=== PATIENT | male | born 1970 | race Native Hawaiian/Other Pacific Islander ===

== ENCOUNTER 2016-08-30 20:46 | Emergency (ER) | payer OTHER ==
[2016-08-30] MEDS ORDERED: SODIUM CHLORIDE 0.9% 1,000 ML IV ONE (21:15)
[2016-08-30] MEDS ORDERED: ONDANSETRON 4 MG/2 ML VIAL IM STA (21:16)
[2016-08-30] MEDS ORDERED: SUCRALFATE 1 GM TAB PO STA (21:16)
[2016-08-30] MEDS ORDERED: ONDANSETRON 4 MG/2 ML VIAL IVP STA (21:33)
[2016-08-30 21:57] LABS: Basophils # (A) 0.1 k/uL (0-0.2); Basophils % (A) 1 %; CH 31.6; CHCM 36.6; Eosinophils # (A) 0.1 k/uL (0-0.7); Eosinophils % (A) 1 %; HCT 40.7 % (39.0-53.0); HDW 2.51; HGB 14.7 gm/dL (13.0-17.5); Luc # (Auto) 0.41; Luc % (Auto) 4; Lymphocytes # (A) 2.3 k/uL (1.0-4.8); Lymphocytes % (A) 24 %; MCH 31.1 pg (25.0-35.0); MCV 86.4 fL (80.0-100.0); Mean Platelet Volume 6.6; Monocytes # (A) 0.8 k/uL (0-1.0); Monocytes % (A) 8 %; Neutrophils # (A) 5.9 k/uL (1.3-7.7); Neutrophils % (A) 62 %; RBC 4.71 m/uL (4.30-5.90); RDW 13.5 % (11.5-15.5); WBC 9.5 k/uL (3.8-10.6); WBC (Perox) 8.73
[2016-08-30 22:00] LABS: Appearance,Urine Clear (Clear); Bilirubin,Urine Negative (Negative); Glucose,Urine (UA) Negative (Negative); Ketones,Urine Negative (Negative); Leukocyte Esterase,Urine Negative (Negative); Nitrite,Urine Negative (Negative); Protein,Urine Negative (Negative); Specific Gravity,Urine 1.002 (1.001-1.035); UA Billing (MACRO vs. MICRO) CHEM; Urobilinogen,Urine <2.0 mg/dL (<2.0)
[2016-08-30] MEDS ORDERED: SODIUM CHLORIDE 0.9% 1,000 ML with MVI, ADULT NO.4 WITH VIT K 10 ML, THIAMINE 100 MG, F... IV ONE ×4 (22:00)
[2016-08-30 22:13] LABS: ALT 28 U/L (21-72); AST 44 U/L (17-59); Alkaline Phosphatase 138 U/L (38-126); Anion Gap 16 mmol/L; Blood Urea Nitrogen 10 mg/dL (9-20); Calcium 8.3 mg/dL (8.4-10.2); Carbon Dioxide 21 mmol/L (22-30); Chloride 102 mmol/L (98-107); Glucose 116 mg/dL (74-99); Non-African American GFR(MDRD) >60 (>60 ml/min/1.73 sqM); Potassium 3.7 mmol/L (3.5-5.1); Sodium 139 mmol/L (137-145); Total Bilirubin 0.6 mg/dL (0.2-1.3); Total Protein 7.4 g/dL (6.3-8.2)
--- NOTE | 2016-08-30 22:30 | ED ---
Alcohol HPI - General Source: patient Mode of arrival: wheelchair Limitations: no limitations <Bigg Mcleod - Last Filed: 08/31/16 00:51> <Keny Lozada - Last Filed: 08/31/16 07:01> - General Chief Complaint: Alcohol Stated Complaint: ETOH - History of Present Illness Initial Comments: Patient is a 46-year-old male who presents for evaluation for severe alcohol intoxication. Past medical history as below. Patient has a significant history of alcohol abuse. States he typically drinks a case of beer daily. Today, he drank a case of beer and half a pint of bourbon. He stated that he walked here from his house to be evaluated for alcohol rehab. He states he does not want to drink anymore. States that he has severe gastritis which she gets from his drinking. States that he is very nauseous. Has a significant history of alcohol withdrawal. He has had at least 4 seizures in the past due to alcohol withdrawal. States she is even been in the ICU for it. He manages his withdrawal symptoms at home with Ativan which she takes regularly. He denies any suicidal homicidal ideation. He denies any other coingestions. Denies any falls or any other injuries. Currently denies fever, chills, headaches, changes in vision, URI symptoms, shortness breath, cough, chest pain , vomiting, diarrhea, pain or burning with urination. (Bigg Mcleod) - Related Data Home Medications Medication Instructions Recorded Confirmed No Known Home Medications [No 06/28/15 08/30/16 Known Home Medications] Allergies Allergy/AdvReac Type Severity Reaction Status Date / Time Sulfa (Sulfonamide Allergy Swelling Verified 08/30/16 22:12 Antibiotics) Review of Systems ROS Other: All systems not noted in ROS Statement are negative. <Bigg Mcleod - Last Filed: 08/31/16 00:51> ROS Other: All systems not noted in ROS Statement are negative. <Keny Lozada - Last Filed: 08/31/16 07:01> ROS Statement: Those systems with pertinent positive or pertinent negative responses have been documented in the HPI. Past Medical History Past Medical History: GERD/Reflux Additional Past Medical History / Comment(s): Gout, Gastritis. History of Any Multi-Drug Resistant Organisms: None Reported Past Surgical History: No Surgical Hx Reported Past Anesthesia/Blood Transfusion Reactions: No Reported Reaction Past Psychological History: Anxiety, Bipolar, Depression Smoking Status: Current every day smoker Past Alcohol Use History: Abuse, Daily, Heavy Past Drug Use History: None Reported - Past Family History Mother History Unknown: Yes Family Medical History: Unable to Obtain Additional Family Medical History / Comment(s): Patient is adopted and does not know any history on his parents or family members. Father Family Medical History: Unable to Obtain <EraleslieBigg Shilpa - Last Filed: 08/31/16 00:51> General Exam Limitations: no limitations General appearance: alert, in no apparent distress, other (Appears clinically intoxicated) Head exam: Present: atraumatic, normocephalic, normal inspection, other (No signs of head trauma.) Eye exam: Present: normal appearance, PERRL, EOMI. Absent: scleral icterus, conjunctival injection, periorbital swelling ENT exam: Present: normal exam, mucous membranes moist Neck exam: Present: normal inspection. Absent: tenderness, meningismus, lymphadenopathy Respiratory exam: Present: normal lung sounds bilaterally, other (No pain with palpation of the chest wall). Absent: respiratory distress, wheezes, rales, rhonchi, stridor Cardiovascular Exam: Present: regular rate, normal rhythm, normal heart sounds. Absent: systolic murmur, diastolic murmur, rubs, gallop, clicks GI/Abdominal exam: Present: soft, tenderness, normal bowel sounds, other (Pain with palpation of the epigastric area. Soft abdomen. No peritoneal signs.). Absent: distended, guarding, rebound, rigid Extremities exam: Present: normal inspection, full ROM, normal capillary refill , other (No signs of trauma to the extremity is. No contusions or lacerations.) . Absent: tenderness, pedal edema, joint swelling, calf tenderness Back exam: Present: normal inspection Neurological exam: Present: alert, oriented X3, CN II-XII intact Psychiatric exam: Present: normal affect, normal mood. Absent: homicidal ideation, suicidal ideation Skin exam: Present: warm, dry, intact, normal color. Absent: rash <EraBigg nelson Shilpa - Last Filed: 08/31/16 00:51> Medical Decision Making - Lab Data Result diagrams: 08/30/16 21:31 08/30/16 21:31 <Bigg Mcleod - Last Filed: 08/31/16 00:51> - Lab Data Result diagrams: 08/30/16 21:31 08/30/16 21:31 <Keny Lozada - Last Filed: 08/31/16 07:01> - Medical Decision Making Patient is a 46-year-old male who presents for evaluation for alcohol abuse help. He is currently intoxicated. Slurred speech. No signs of trauma. He did have some tenderness in the epigastric area but he has a known history of gastritis and states he is very nauseous right now. We'll order basic labs with an alcohol level, and in a bag, IV fluids, Carafate. Does have a significant history of alcohol withdrawal. We'll monitor closely. 0030: Reviewed laboratory studies. Largely unremarkable. Alcohol level 0.296. No AG. UDS positive for benzos which she takes at home. He is currently sleeping in the stretcher. No acute distress. 0100: Signed patient out to Dr. Lozada. Will follow-up after patient is clinically sober and dispose accordingly. Reevaluated the patient. Resting comfortably in the stretcher. (Bigg Mcleod) - Lab Data Lab Results 08/30/16 08/30/16 08/30/16 Range/Units 21:31 21:31 21:50 WBC 9.5 (3.8-10.6) k/uL RBC 4.71 (4.30-5.90) m/uL Hgb 14.7 (13.0-17.5) gm/dL Hct 40.7 (39.0-53.0) % MCV 86.4 (80.0-100.0) fL MCH 31.1 (25.0-35.0) pg MCHC 36.0 (31.0-37.0) g/dL RDW 13.5 (11.5-15.5) % Plt Count 260 (150-450) k/uL Neutrophils % 62 % Lymphocytes % 24 % Monocytes % 8 % Eosinophils % 1 % Basophils % 1 % Neutrophils # 5.9 (1.3-7.7) k/uL Lymphocytes # 2.3 (1.0-4.8) k/uL Monocytes # 0.8 (0-1.0) k/uL Eosinophils # 0.1 (0-0.7) k/uL Basophils # 0.1 (0-0.2) k/uL Sodium 139 (137-145) mmol/L Potassium 3.7 (3.5-5.1) mmol/L Chloride 102 (98-107) mmol/L Carbon Dioxide 21 L (22-30) mmol/L Anion Gap 16 mmol/L BUN 10 (9-20) mg/dL Creatinine 0.65 L (0.66-1.25) mg/dL Est GFR (MDRD) Af Amer >60 (>60 ml/min/1.73 sqM) Est GFR (MDRD) Non-Af >60 (>60 ml/min/1.73 sqM) Glucose 116 H (74-99) mg/dL Calcium 8.3 L (8.4-10.2) mg/dL Total Bilirubin 0.6 (0.2-1.3) mg/dL AST 44 (17-59) U/L ALT 28 (21-72) U/L Alkaline Phosphatase 138 H (38-126) U/L Total Protein 7.4 (6.3-8.2) g/dL Albumin 4.3 (3.5-5.0) g/dL Lipase 85 (23-300) U/L Urine Color Colorless Urine Appearance Clear (Clear) Urine pH 5.0 (5.0-8.0) Ur Specific [place] 1.002 (1.001-1.035) Urine Protein Negative (Negative) Urine Glucose (UA) Negative (Negative) Urine Ketones Negative (Negative) Urine Blood Negative (Negative) Urine Nitrite Negative (Negative) Urine Bilirubin Negative (Negative) Urine Urobilinogen <2.0 (<2.0) mg/dL Ur Leukocyte Esterase Negative (Negative) Urine Opiates Screen (NotDetected) Ur Oxycodone Screen (NotDetected) Urine Methadone Screen (NotDetected) Ur Propoxyphene Screen (NotDetected) Ur Barbiturates Screen (NotDetected) U Tricyclic Antidepress (NotDetected) Ur Phencyclidine Scrn (NotDetected) Ur Amphetamines Screen (NotDetected) U Methamphetamines Scrn (NotDetected) U Benzodiazepines Scrn (NotDetected) Urine Cocaine Screen (NotDetected) U Marijuana (THC) Screen (NotDetected) Serum Alcohol 296 mg/dL 08/30/16 Range/Units 21:50 WBC (3.8-10.6) k/uL RBC (4.30-5.90) m/uL Hgb (13.0-17.5) gm/dL Hct (39.0-53.0) % MCV (80.0-100.0) fL MCH (25.0-35.0) pg MCHC (31.0-37.0) g/dL RDW (11.5-15.5) % Plt Count (150-450) k/uL Neutrophils % % Lymphocytes % % Monocytes % % Eosinophils % % Basophils % % Neutrophils # (1.3-7.7) k/uL Lymphocytes # (1.0-4.8) k/uL Monocytes # (0-1.0) k/uL Eosinophils # (0-0.7) k/uL Basophils # (0-0.2) k/uL Sodium (137-145) mmol/L Potassium (3.5-5.1) mmol/L Chloride (98-107) mmol/L Carbon Dioxide (22-30) mmol/L Anion Gap mmol/L BUN (9-20) mg/dL Creatinine (0.66-1.25) mg/dL Est GFR (MDRD) Af Amer (>60 ml/min/1.73 sqM) Est GFR (MDRD) Non-Af (>60 ml/min/1.73 sqM) Glucose (74-99) mg/dL Calcium (8.4-10.2) mg/dL Total Bilirubin (0.2-1.3) mg/dL AST (17-59) U/L ALT (21-72) U/L Alkaline Phosphatase (38-126) U/L Total Protein (6.3-8.2) g/dL Albumin (3.5-5.0) g/dL Lipase (23-300) U/L Urine Color Urine Appearance (Clear) Urine pH (5.0-8.0) Ur Specific [place] (1.001-1.035) Urine Protein (Negative) Urine Glucose (UA) (Negative) Urine Ketones (Negative) Urine Blood (Negative) Urine Nitrite (Negative) Urine Bilirubin (Negative) Urine Urobilinogen (<2.0) mg/dL Ur Leukocyte Esterase (Negative) Urine Opiates Screen Not Detected (NotDetected) Ur Oxycodone Screen Not Detected (NotDetected) Urine Methadone Screen Not Detected (NotDetected) Ur Propoxyphene Screen Not Detected (NotDetected) Ur Barbiturates Screen Not Detected (NotDetected) U Tricyclic Antidepress Not Detected (NotDetected) Ur Phencyclidine Scrn Not Detected (NotDetected) Ur Amphetamines Screen Not Detected (NotDetected) U Methamphetamines Scrn Not Detected (NotDetected) U Benzodiazepines Scrn Detected H (NotDetected) Urine Cocaine Screen Not Detected (NotDetected) U Marijuana (THC) Screen Not Detected (NotDetected) Serum Alcohol mg/dL Disposition <Bigg Mcleod C - Last Filed: 08/31/16 00:51> <Keny Lozada B - Last Filed: 08/31/16 07:01> Clinical Impression: Alcohol abuse, Alcohol intoxication Disposition: HOME SELF-CARE Instructions: Alcohol Intoxication (ED) Referrals: None,Stated [Primary Care Provider] - 1-2 days Sherry Salazar MD [REFERRING] - 1-2 days Leonidas Coon MD [Medical Doctor] - 1-2 days
[2016-08-30 22:33] LABS: Alcohol 296 mg/dL
[2016-08-30 22:37] VITALS: RESP 20
[2016-08-31 07:09] VITALS: BP 117/76; PULSE 71; TEMP 98.7
== END 2016-08-31 07:12 | disposition home or self-care (01) ==
LOC: EC 20:46
DX: F10.129 Alcohol abuse with intoxication, unspecified (principal); R10.13 Epigastric pain; R11.0 Nausea; F17.200 Nicotine dependence, unspecified, uncomplicated; Z88.2 Allergy status to sulfonamides
CPT/HCPCS: 99284; 96365; 96366 ×8; 96375; 82075; 36415; 80053; 83690; 85025; 81003; 80306; 80320; J3411; J2405

== ENCOUNTER 2016-09-04 18:11 | Emergency (ER) | payer OTHER ==
[2016-09-04 18:16] VITALS: RESP 18
[2016-09-04] MEDS ORDERED: DIPH,PERTUS(ACELL)TETVAC-LF 0.5 ML VIAL IM ONE (18:39)
[2016-09-04 18:42] LABS: Basophils # (A) 0.1 k/uL (0-0.2); Basophils % (A) 1 %; CHCM 36.7; Eosinophils # (A) 0.1 k/uL (0-0.7); Eosinophils % (A) 1 %; HCT 37.7 % (39.0-53.0); HDW 2.62; HGB 13.9 gm/dL (13.0-17.5); Luc # (Auto) 0.41; Luc % (Auto) 4; Lymphocytes # (A) 2.9 k/uL (1.0-4.8); Lymphocytes % (A) 31 %; MCH 32.3 pg (25.0-35.0); MCHC 36.9 g/dL (31.0-37.0); MCV 87.3 fL (80.0-100.0); Mean Platelet Volume 6.5; Monocytes # (A) 0.4 k/uL (0-1.0); Monocytes % (A) 4 %; Neutrophils # (A) 5.5 k/uL (1.3-7.7); Neutrophils % (A) 59 %; RBC 4.32 m/uL (4.30-5.90); RDW 13.8 % (11.5-15.5); WBC 9.4 k/uL (3.8-10.6); WBC (Perox) 8.89
[2016-09-04 18:54] LABS: ALT 27 U/L (21-72); AST 27 U/L (17-59); Alkaline Phosphatase 105 U/L (38-126); Anion Gap 17 mmol/L; Blood Urea Nitrogen 9 mg/dL (9-20); Calcium 8.5 mg/dL (8.4-10.2); Carbon Dioxide 20 mmol/L (22-30); Chloride 100 mmol/L (98-107); Glucose 97 mg/dL (74-99); Non-African American GFR(MDRD) >60 (>60 ml/min/1.73 sqM); Potassium 3.4 mmol/L (3.5-5.1); Sodium 137 mmol/L (137-145); Total Bilirubin 0.7 mg/dL (0.2-1.3); Total Protein 7.1 g/dL (6.3-8.2)
[2016-09-04 18:56] LABS: Alcohol 227 mg/dL
[2016-09-04] MEDS ORDERED: LORazepam 2 MG/ML SYRINGE IV STA ×2 (20:36→22:41)
[2016-09-04] MEDS ORDERED: ONDANSETRON 4 MG/2 ML VIAL IVP STA (20:36)
[2016-09-04] MEDS ORDERED: SODIUM CHLORIDE 0.9% 1,000 ML IV ONE (20:36)
[2016-09-04] MEDS ORDERED: ACETAMINOPHEN TAB 325 MG TAB PO STA (20:57)
--- NOTE | 2016-09-04 21:07 | ED ---
General Adult HPI - General Source: patient, EMS, RN notes reviewed Mode of arrival: EMS Limitations: no limitations <aNvid Mark - Last Filed: 09/05/16 00:58> <Anival Parra - Last Filed: 09/05/16 05:21> - General Chief complaint: Psychiatric Symptoms Stated complaint: Mental Health Time Seen by Provider: 09/04/16 18:43 - History of Present Illness Initial comments: 46-year-old man presents for suicidal ideation. Patient was found by EMS after cutting his bilateral forearms and wrists. According to EMS the significant amount of blood at the scene. Patient has done this on several other occasions. Patient does admit to drinking alcohol states every time he drinks alcohol he becomes suicidal. Patient reports suicidal ideation. He denies ingesting anything other than alcohol. (Navid Mark) - Related Data Home Medications Medication Instructions Recorded Confirmed Lurasidone HCl [Latuda] 20 mg PO DAILY 09/04/16 09/04/16 Allergies Allergy/AdvReac Type Severity Reaction Status Date / Time Sulfa (Sulfonamide Allergy Swelling Verified 09/04/16 19:25 Antibiotics) Review of Systems ROS Other: All systems not noted in ROS Statement are negative. Respiratory: Denies: cough Cardiovascular: Denies: chest pain Endocrine: Denies: fatigue Gastrointestinal: Denies: abdominal pain, nausea, vomiting <Navid Mark - Last Filed: 09/05/16 00:58> ROS Other: All systems not noted in ROS Statement are negative. <Anival Parra - Last Filed: 09/05/16 05:21> ROS Statement: Those systems with pertinent positive or pertinent negative responses have been documented in the HPI. Past Medical History Past Medical History: GERD/Reflux Additional Past Medical History / Comment(s): Gout, Gastritis. History of Any Multi-Drug Resistant Organisms: None Reported Past Surgical History: Tonsillectomy Past Anesthesia/Blood Transfusion Reactions: No Reported Reaction Past Psychological History: Anxiety, Bipolar, Depression Smoking Status: Current every day smoker Past Alcohol Use History: Abuse, Daily, Heavy Past Drug Use History: None Reported - Past Family History Mother History Unknown: Yes Family Medical History: Unable to Obtain Additional Family Medical History / Comment(s): Patient is adopted and does not know any history on his parents or family members. Father Family Medical History: Unable to Obtain <DeedeeNavid Romain - Last Filed: 09/05/16 00:58> General Exam Limitations: no limitations General appearance: alert, in no apparent distress Head exam: Present: atraumatic, normocephalic Eye exam: Present: normal appearance, PERRL ENT exam: Present: normal exam, mucous membranes moist Neck exam: Present: normal inspection, full ROM Respiratory exam: Present: normal lung sounds bilaterally. Absent: respiratory distress Cardiovascular Exam: Present: regular rate, normal rhythm GI/Abdominal exam: Present: soft. Absent: distended, tenderness Extremities exam: Present: other (Multiple lacerations to the palmar surface of bilateral upper extremities. Greatest laceration on each arm is approximately 15 cm.) Back exam: Present: full ROM Neurological exam: Present: alert, oriented X3 Psychiatric exam: Present: depressed Skin exam: Present: warm, dry <Navid Mark - Last Filed: 09/05/16 00:58> Course <Navid Mark - Last Filed: 09/05/16 00:58> <Anival Parra - Last Filed: 09/05/16 05:21> Vital Signs 09/04/16 09/04/16 09/04/16 18:12 20:55 21:53 Temperature 100.1 F H 97.9 F Pulse Rate 115 H 60 Respiratory 18 18 Rate Blood Pressure 131/83 119/73 O2 Sat by Pulse 94 L 94 L Oximetry 09/04/16 23:49 Temperature Pulse Rate 91 Respiratory 18 Rate Blood Pressure 119/65 O2 Sat by Pulse 94 L Oximetry - Reevaluation(s) Reevaluation #1: 09/05/16 05:19 Department of psychiatry has evaluated the patient and they believe he needs admission, they are in the process of finding him inpatient bed, I have completed Cert for his admission (Anival Parra) Procedures - Laceration Laceration #3 Consent Obtained: verbal consent Time Out Performed: Yes Indication: laceration Site: upper extremity Description: linear, irregular, clean Depth: simple, single layer Anesthetic Used: lidocaine 1% Anesthesia Technique: local infiltration Pre-repair: irrigated extensively, deep structures intact Type of Sutures: nylon Size of Sutures: 4-0 Number of Sutures: 25 Technique: simple, interrupted Patient Tolerated Procedure: well <Navid Mark - Last Filed: 09/05/16 00:58> Medical Decision Making - Lab Data Result diagrams: 09/04/16 18:28 09/04/16 18:28 <Navid Mark - Last Filed: 09/05/16 00:58> - Lab Data Result diagrams: 09/04/16 18:28 09/04/16 18:28 <Anival Parra - Last Filed: 09/05/16 05:21> - Medical Decision Making 46 male presenting with suicidal ideation and attempt by cutting his bilateral wrists. According to EMS there was a significant amount of blood on scene. Patient's wounds were irrigated and cleansed and repaired. Laboratory studies revealed a stable hemoglobin. Patient's blood alcohol level is elevated. We will await clinical sobriety and the patient will be evaluated by psychiatry. Patient is medically cleared and currently awaiting psychiatric evaluation. Patient's care will be signed out to the oncoming physician Dr. Parra. ( Navid Mark) - Lab Data Lab Results 09/04/16 09/04/16 09/04/16 Range/Units 18:28 18:28 19:53 WBC 9.4 (3.8-10.6) k/uL RBC 4.32 (4.30-5.90) m/uL Hgb 13.9 (13.0-17.5) gm/dL Hct 37.7 L (39.0-53.0) % MCV 87.3 (80.0-100.0) fL MCH 32.3 (25.0-35.0) pg MCHC 36.9 (31.0-37.0) g/dL RDW 13.8 (11.5-15.5) % Plt Count 227 (150-450) k/uL Neutrophils % 59 % Lymphocytes % 31 % Monocytes % 4 % Eosinophils % 1 % Basophils % 1 % Neutrophils # 5.5 (1.3-7.7) k/uL Lymphocytes # 2.9 (1.0-4.8) k/uL Monocytes # 0.4 (0-1.0) k/uL Eosinophils # 0.1 (0-0.7) k/uL Basophils # 0.1 (0-0.2) k/uL Sodium 137 (137-145) mmol/L Potassium 3.4 L (3.5-5.1) mmol/L Chloride 100 (98-107) mmol/L Carbon Dioxide 20 L (22-30) mmol/L Anion Gap 17 mmol/L BUN 9 (9-20) mg/dL Creatinine 0.74 (0.66-1.25) mg/dL Est GFR (MDRD) Af Amer >60 (>60 ml/min/1.73 sqM) Est GFR (MDRD) Non-Af >60 (>60 ml/min/1.73 sqM) Glucose 97 (74-99) mg/dL Calcium 8.5 (8.4-10.2) mg/dL Total Bilirubin 0.7 (0.2-1.3) mg/dL AST 27 (17-59) U/L ALT 27 (21-72) U/L Alkaline Phosphatase 105 (38-126) U/L Total Protein 7.1 (6.3-8.2) g/dL Albumin 4.0 (3.5-5.0) g/dL Urine Opiates Screen Not Detected (NotDetected) Ur Oxycodone Screen Not Detected (NotDetected) Urine Methadone Screen Not Detected (NotDetected) Ur Propoxyphene Screen Not Detected (NotDetected) Ur Barbiturates Screen Not Detected (NotDetected) U Tricyclic Antidepress Not Detected (NotDetected) Ur Phencyclidine Scrn Not Detected (NotDetected) Ur Amphetamines Screen Not Detected (NotDetected) U Methamphetamines Scrn Not Detected (NotDetected) U Benzodiazepines Scrn Not Detected (NotDetected) Urine Cocaine Screen Not Detected (NotDetected) U Marijuana (THC) Screen Not Detected (NotDetected) Serum Alcohol 227 mg/dL Disposition <Navid Mark - Last Filed: 09/05/16 00:58> - Out of Hospital Transfer - Req. Specs Out of Hospital Transfer - Requested Specifics: Psychiatric Non-ICU <Anival Parra - Last Filed: 09/05/16 05:21> Clinical Impression: Acute alcohol intoxication, Suicidal ideation, Self-inflicted laceration of wrist Disposition: OTHER INSTITUTION NOT DEFINED Condition: Good Referrals: None,Stated [Primary Care Provider] - 1-2 days
[2016-09-04] MEDS ORDERED: IBUPROFEN 600 MG TAB PO STA (22:42)
[2016-09-05 06:55] VITALS: BP 117/77; PULSE 76; TEMP 98.5
== END 2016-09-05 06:56 | disposition short-term general hospital (02) ==
LOC: EC 18:11
DX: S61.511A Laceration without foreign body of right wrist, initial encounter (principal); S61.512A Laceration without foreign body of left wrist, initial encounter; F10.129 Alcohol abuse with intoxication, unspecified; R78.0 Finding of alcohol in blood; F31.9 Bipolar disorder, unspecified; F41.9 Anxiety disorder, unspecified; F17.200 Nicotine dependence, unspecified, uncomplicated; Z23 Encounter for immunization; Z79.899 Other long term (current) drug therapy; Z88.2 Allergy status to sulfonamides; X78.8XXA Intentional self-harm by other sharp object, initial encounter
CPT/HCPCS: 99285; 12005; 96374; 96375; 96376; 96361; 90471; 36415; 80053; 85025; 80306; 80320; 90715; J2060; J2405

== ENCOUNTER 2016-09-26 13:14 | Inpatient (IN) | payer MEDICAID, OTHER ==
[2016-09-26] MEDS ORDERED: THIAMINE 100 MG/ML 2 ML VIAL IM STA (13:39)
[2016-09-26] MEDS ORDERED: LORazepam 2 MG/ML SYRINGE IV PRN (13:39)
[2016-09-26] MEDS ORDERED: SODIUM CHLORIDE 0.9% 1,000 ML IV STA (13:40)
--- NOTE | 2016-09-26 13:43 | ED ---
General Adult HPI - General Chief complaint: Psychiatric Symptoms Stated complaint: ETOH Time Seen by Provider: 09/26/16 13:28 Source: patient, RN notes reviewed Mode of arrival: ambulatory Limitations: no limitations - History of Present Illness Initial comments: Patient 46-year-old male who presents emergency room today with chief complaint of suicidal. He does admit that he has been drinking. Does admit to being a daily drinker. States he would like to get back in to detox. States he is having thoughts of hurting himself. States he has made attempts in the past. States been hospitalized for psych in the past. Patient denies any homicidal thoughts or plans. Denies any auditory or visual hallucinations. Denies any other complaints or associated symptoms at this time. Patient denies any recent fever, chills, shortness of breath, chest pain, back pain, abdominal pain, nausea or vomiting, numbness or tingling, dysuria or hematuria, constipation or diarrhea, headaches or visual changes, or any other complaints. - Related Data Home Medications Medication Instructions Recorded Confirmed Multivitamins, Thera [Multivitamin 1 tab PO DAILY 09/26/16 09/26/16 (formulary)] Allergies Allergy/AdvReac Type Severity Reaction Status Date / Time Sulfa (Sulfonamide Allergy Swelling Verified 09/26/16 13:17 Antibiotics) Review of Systems ROS Statement: Those systems with pertinent positive or pertinent negative responses have been documented in the HPI. ROS Other: All systems not noted in ROS Statement are negative. Past Medical History Past Medical History: GERD/Reflux Additional Past Medical History / Comment(s): Gout, Gastritis. History of Any Multi-Drug Resistant Organisms: None Reported Past Surgical History: Tonsillectomy Past Anesthesia/Blood Transfusion Reactions: No Reported Reaction Past Psychological History: Anxiety, Bipolar, Depression Smoking Status: Current every day smoker Past Alcohol Use History: Abuse, Daily, Heavy Past Drug Use History: None Reported - Past Family History Mother History Unknown: Yes Family Medical History: Unable to Obtain Additional Family Medical History / Comment(s): Patient is adopted and does not know any history on his parents or family members. Father Family Medical History: Unable to Obtain General Exam - General Exam Comments Initial Comments: General: The patient is awake and alert, intoxicated. Eye: Pupils are equal, round and reactive to light, extra-ocular movements are intact. No nystagmus. There is normal conjunctiva bilaterally. No signs of icterus. Ears, nose, mouth and throat: There are moist mucous membranes and no oral lesions. Neck: The neck is supple, there is no tenderness or JVD. Cardiovascular: There is a regular rate and rhythm. No murmur, rub or gallop is appreciated. Respiratory: Lungs are clear to auscultation, respirations are non-labored, breath sounds are equal. No wheezes, stridor, rales, or rhonchi. Gastrointestinal: Soft, non-distended, non-tender abdomen without masses or organomegaly noted. There is no rebound or guarding present. No CVA tenderness. Bowel sounds are unremarkable. Musculoskeletal: Normal ROM, no tenderness. Strength 5/5. Sensation intact. Pulses equal bilaterally 2+. Neurological: A&O x 3. CN II-XII intact, There are no obvious motor or sensory deficits. Coordination appears grossly intact. Speech is normal. Skin: Skin is warm and dry and no rashes or lesions are noted. Psychiatric: Cooperative Limitations: no limitations Course Vital Signs 09/26/16 09/26/16 09/26/16 13:15 19:59 22:34 Temperature 99.4 F 98.9 F Pulse Rate 118 H 111 H Respiratory 20 16 20 Rate Blood Pressure 121/68 111/57 O2 Sat by Pulse 98 96 Oximetry 09/27/16 09/27/16 06:52 14:13 Temperature 97.6 F Pulse Rate 91 966 H Respiratory 20 18 Rate Blood Pressure 107/66 141/84 O2 Sat by Pulse 99 100 Oximetry Medical Decision Making - Lab Data Result diagrams: 09/26/16 14:00 09/26/16 14:00 Lab Results 09/26/16 09/26/16 09/26/16 Range/Units 14:00 14:00 17:00 WBC 7.6 (3.8-10.6) k/uL RBC 4.53 (4.30-5.90) m/uL Hgb 14.1 (13.0-17.5) gm/dL Hct 40.7 (39.0-53.0) % MCV 89.8 (80.0-100.0) fL MCH 31.0 (25.0-35.0) pg MCHC 34.6 (31.0-37.0) g/dL RDW 13.4 (11.5-15.5) % Plt Count 283 (150-450) k/uL Neutrophils % 62 % Lymphocytes % 27 % Monocytes % 4 % Eosinophils % 2 % Basophils % 1 % Neutrophils # 4.7 (1.3-7.7) k/uL Lymphocytes # 2.1 (1.0-4.8) k/uL Monocytes # 0.3 (0-1.0) k/uL Eosinophils # 0.1 (0-0.7) k/uL Basophils # 0.1 (0-0.2) k/uL Sodium 138 (137-145) mmol/L Potassium 4.2 (3.5-5.1) mmol/L Chloride 107 (98-107) mmol/L Carbon Dioxide 18 L (22-30) mmol/L Anion Gap 13 mmol/L BUN 10 (9-20) mg/dL Creatinine 0.69 (0.66-1.25) mg/dL Est GFR (MDRD) Af Amer >60 (>60 ml/min/1.73 sqM) Est GFR (MDRD) Non-Af >60 (>60 ml/min/1.73 sqM) Glucose 75 (74-99) mg/dL Calcium 8.5 (8.4-10.2) mg/dL Total Bilirubin 0.5 (0.2-1.3) mg/dL AST 31 (17-59) U/L ALT 26 (21-72) U/L Alkaline Phosphatase 134 H (38-126) U/L Total Protein 7.6 (6.3-8.2) g/dL Albumin 4.3 (3.5-5.0) g/dL Urine Opiates Screen Not Detected (NotDetected) Ur Oxycodone Screen Not Detected (NotDetected) Urine Methadone Screen Not Detected (NotDetected) Ur Propoxyphene Screen Not Detected (NotDetected) Ur Barbiturates Screen Not Detected (NotDetected) U Tricyclic Antidepress Not Detected (NotDetected) Ur Phencyclidine Scrn Not Detected (NotDetected) Ur Amphetamines Screen Not Detected (NotDetected) U Methamphetamines Scrn Not Detected (NotDetected) U Benzodiazepines Scrn Not Detected (NotDetected) Urine Cocaine Screen Not Detected (NotDetected) U Marijuana (THC) Screen Not Detected (NotDetected) Disposition Clinical Impression: Alcohol intoxication, Suicidal ideation Disposition: TRANSFER TO PSYCH HOSP/UNIT Condition: Stable
[2016-09-26] MEDS ORDERED: SODIUM CHLORIDE 0.9% 1,000 ML with MVI, ADULT NO.4 WITH VIT K 10 ML, THIAMINE 100 MG, F... IV ONE ×4 (14:00)
[2016-09-26] MEDS: LORazepam 2 MG/ML SYRINGE IV PRN (14:24)
[2016-09-26 14:30] LABS: ALT 26 U/L (21-72); AST 31 U/L (17-59); Alkaline Phosphatase 134 U/L (38-126); Anion Gap 13 mmol/L; Basophils # (A) 0.1 k/uL (0-0.2); Basophils % (A) 1 %; Blood Urea Nitrogen 10 mg/dL (9-20); CH 31.6; CHCM 35.3; Calcium 8.5 mg/dL (8.4-10.2); Carbon Dioxide 18 mmol/L (22-30); Chloride 107 mmol/L (98-107); Eosinophils # (A) 0.1 k/uL (0-0.7); Eosinophils % (A) 2 %; Glucose 75 mg/dL (74-99); HCT 40.7 % (39.0-53.0); HDW 3.03; HGB 14.1 gm/dL (13.0-17.5); Luc # (Auto) 0.33; Luc % (Auto) 4; Lymphocytes # (A) 2.1 k/uL (1.0-4.8); Lymphocytes % (A) 27 %; MCHC 34.6 g/dL (31.0-37.0); MCV 89.8 fL (80.0-100.0); Mean Platelet Volume 7.7; Monocytes # (A) 0.3 k/uL (0-1.0); Monocytes % (A) 4 %; Neutrophils # (A) 4.7 k/uL (1.3-7.7); Neutrophils % (A) 62 %; Non-African American GFR(MDRD) >60 (>60 ml/min/1.73 sqM); Potassium 4.2 mmol/L (3.5-5.1); RBC 4.53 m/uL (4.30-5.90); RDW 13.4 % (11.5-15.5); Sodium 138 mmol/L (137-145); Total Bilirubin 0.5 mg/dL (0.2-1.3); Total Protein 7.6 g/dL (6.3-8.2); WBC 7.6 k/uL (3.8-10.6); WBC (Perox) 7.84
[2016-09-27] MEDS: LORazepam 2 MG/ML SYRINGE IV PRN ×3 (06:08→12:06)
[2016-09-27] MEDS ORDERED: THIAMINE 100 MG TAB PO SCH (12:00)
[2016-09-27] MEDS ORDERED: MAG HYDROX/AL HYDROX/SIMETH 30 ML CUP PO PRN (14:14)
[2016-09-27] MEDS ORDERED: ZIPRASIDONE 20 MG VIAL IM PRN (14:14)
[2016-09-27] MEDS ORDERED: MAGNESIUM HYDROXIDE 2,400 MG/10 ML CUP PO PRN (14:14)
[2016-09-27] MEDS ORDERED: ACETAMINOPHEN TAB 325 MG TAB PO PRN (14:14)
[2016-09-27] MEDS: LORazepam 1 MG TAB PO PRN ×3 (14:58→19:28)
[2016-09-27 16:21] LABS: Alcohol <10 mg/dL
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
[2016-09-27 17:33] VITALS: BMI 24.7
[2016-09-27] MEDS ORDERED: COLCHICINE 0.6 MG TAB PO STA (18:26)
--- NOTE | 2016-09-27 19:10 | P.MDCNMH ---
History of Present Illness H&P Date: 09/27/16 Chief Complaint: medical management for right big toe pain and alcohol withdrawal 46-year-old male presented to [facility] emergency department due to suicidal ideation, patient admitted to having voices in his head telling him to cut himself which she recognized this time and decided to come to the hospital to surround himself with people and be safe. Patient reported multiple suicidal attempts in the past (involving self-inflicted cuts, drug overdose and alcohol abuse ) most recent one was mid August last month when he used a razor to self- inflicted cuts in both his forearms for which he was admitted to hospital, treated and sutured. Patient reported that he removed the sutures himself later. Patient reported that he was started on Invega however he was unable to follow up outpatient to receive further doses. Patient currently denies any suicidal ideation at this point and he is seeking help. Patient also complains of right big toe pain and redness at the base of the big toe that has started a couple days ago pain is around 6-7 out of 10 gets worse with walking associated with some skin redness however he reports that the bony prominence is chronic, he is asking for pain medication to control the pain and he reports that this has happened before when he was diagnosed with gout in the past otherwise denies any fevers or chills, denies any trauma to his foot. He admits to walking long distances due to being homeless. Patient reports history of bipolar with alternating depressive and manic episodes. He denies taking any medications at this time. Patient admits to abusing alcohol where he drinks heavily mainly beers and hard liquor when he can afford, his last alcohol intake was yesterday where he had almost a pint of liquor and and a lot of 24 ounce beers. He recognizes that this is alcohol abuse and he is hoping that he can go to detox. He does report that he had withdrawal seizures in the past when he suddenly stopped alcohol. Patient also reports history of gastritis and GERD, he admits to some epigastric discomfort but denies any hematemesis, nausea, vomiting, diarrhea or constipation, denies any abdominal pain at this point. 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 Patient was admitted to the psych unit due to suicidal ideation for further management. Medicine was consulted to assist with management of alcohol withdrawal, and possible culture arthritis. Patient reports some occasional numbness over the medial aspect of his right hand mainly over the fifth finger and that has started since he inflicted deep cuts into his right forearm in the past and a suicidal attempt. Patient otherwise denies any chest pain, trouble breathing, fevers or chills, dizziness or lightheadedness, GI bleeding. Review of Systems Constitutional: Patient reports no fever, no chills, no night sweating, no significant weight changes Eyes: Patient reports no visual changes, no eye pain ENT: Patient reports no ear pain, no rhinorrhea, no sore throat Cardiovascular: Patient reports no chest pain, no exertional dyspnea, no peripheral leg edema, no orthopnea, no paroxysmal nocturnal dyspnea Respiratory:Patient reports no cough, no wheezing, no shortness of breath Gastrointestinal: Patient reports no diarrhea, no constipation, no nausea no vomiting, no abdominal pain Genitourinary: Patient reports no dysuria, no hematuria, no changes in urinary habits, no abdnormal lesions Musculoskeletal: Patient reports no muscle pain, but does report right big toe pain as mentioned in HPI Psychiatric: reports depressed affect and suicidal ideation as mentioned in HPI Endocrine: Patient reports no heat intolerance, no cold intolerance, no excessive thirst, no polyuria Neurological: Patient reports right hand numbness as mentioned in HPI otherwise denies any weakness Hem/Lymphatic: Patient reports no bleeding tendency, no bruising, no swollen lymph glands Allergic/Immun: Patient reports no recent allergic reactions Skin: Patient reports no rashes, no pruritis, no ulcers Past Medical History Past Medical History: GERD/Reflux Additional Past Medical History / Comment(s): Gout, Gastritis. History of Any Multi-Drug Resistant Organisms: None Reported Past Surgical History: Tonsillectomy Additional Past Surgical History / Comment(s): self inflicted wounds and cuts in both forearms status post suturing Past Anesthesia/Blood Transfusion Reactions: No Reported Reaction Past Psychological History: Bipolar, Depression Additional Psychological History / Comment(s): Multiple suicidal attempts in the past Smoking Status: Current every day smoker Past Alcohol Use History: Abuse Additional Past Alcohol Use History / Comment(s): On regular basis he drinks a pint of liquor and a lot of 24 ounces beers Additional Drug Use History / Comment(s): Admits to drug of abuse in the past but nothing current Additional History: Patient is homeless - Past Family History Mother History Unknown: Yes Family Medical History: Unable to Obtain Additional Family Medical History / Comment(s): Patient is adopted and does not know any history on his parents or family members. Father History Unknown: Yes Additional Family Medical History / Comment(s): Patient was adopted when he was 4 years old and was picked up from an orphanage Medications and Allergies Home Medications Medication Instructions Recorded Confirmed Type Multivitamins, Thera [Multivitamin 1 tab PO DAILY 09/26/16 09/26/16 History (formulary)] Allergies Allergy/AdvReac Type Severity Reaction Status Date / Time Sulfa (Sulfonamide Allergy Swelling Verified 09/27/16 16:51 Antibiotics) Physical Exam Vitals: Vital Signs Temp Pulse Pulse Resp BP BP Pulse Ox 09/27/16 17:21 97.4 F L 91 15 120/70 98 09/27/16 17:15 92 131/89 09/27/16 16:34 89 16 123/89 09/27/16 14:13 97.4 F L 966 H 91 15 141/84 120/70 98 09/27/16 06:52 91 20 107/66 99 09/26/16 22:34 98.9 F 111 H 20 111/57 96 09/26/16 19:59 16 Intake and Output 09/27/16 09/27/16 09/27/16 06:59 14:59 22:59 Other: Weight 78.3 kg Patient Weight 09/28/16 06:59 Weight 78.3 kg Constitutional: Not in acute distress, pleasant, conversant, vital signs stable Eyes: Pupils equal round reactive to light, anicteric sclerae, moist conjunctivae ENMT: Normocephalic, atraumatic, oropharynx clear, no erythema/exudate Neck: Supple, FORM, no palpable thyromegally Lymphatics: no palpable cervical or supraclavicular lymph nodes, no palpable inguinal lymph nodes Respiratory: Clear to auscultation bilaterally, no wheezes, no crackles, no rhonchi, clear to percussion, normal respiratory effort without use of accessory muscles Cardiovascular: Regular rate and rhythm, no murmurs, no gallops, no rubs, no peripheral edema / or varicosities, no JVD, no carotid bruits, femoral arteries palpable bilaterally with no bruits, peripheral pulses palpable and equal over bilateral radial arteries and dorsalis pedis arteries Abdomen: Bowel sounds positive, soft, no tenderness to palpation, no palpable masses, no palpable hepatosplenomegally, no abdominal wall hernias Skin: Multiple scars over the ventral aspect of both forearms due to self- inflicted wounds in the past, there is a raised area over the distal ventral aspect of the right forearm a recent suturing was performed due to razor cuts there is no induration no erythema wound looks healthy and healed no tenderness to palpation, there is no drainage or any fluctuant mass underneath no warmth to the touch. Otherwise skin exam showed unremarkable temperature, tone, texture, and turgor,, no rashes, no lesions, no ulcers Extremities: No digital cyanosis, ischemia or clubbing, no calf muscle tenderness bilaterally, strength and sensation is grossly intact throughout, patient has bilateral hallux valgus with onions worse on the right side Psych: Alert, oriented to place, person and date, recent and remote memory intact, appropriate mood and affect, poor judgment Neurologic:No focal sensory deficits to touch, Deep tendon reflexes unremarkable over bilateral knees and brachial reflexes. Cranial Nerve Examination - Cranial Nerves Cranial Nerve II- Optic: Intact Cranial Nerve III- Oculomotor: Intact Cranial Nerve IV- Trochlear: Intact Cranial Nerve V- Trigeminal: Intact Cranial Nerve - Abducens: Intact Cranial Nerve VII- Facial: Intact Cranial Nerve VIII- Auditory: Intact Cranial Nerve IX- Glossopharyngeal: Intact Cranial Nerve X- Vagus: Intact Cranial Nerve XI- Accessory: Intact Cranial Nerve XII- Hypoglossal: Intact Results Results: Labs reviewed, initially patient had the alcohol breathalyzer showing level of 209, today serum alcohol level was less than 10 CBC & Chem 7: 09/26/16 14:00 09/26/16 14:00 Assessment and Plan (1) Acute alcohol intoxication Narrative/Plan: Acute moderate severity alcohol intoxication upon presentation, now resolved patient at risk of alcohol withdrawal Patient counseled regarding abstinence from alcohol Alcohol withdrawal precautions Fall precautions Thiamine, folic acid, multivitamins [facility] scale to assess for all call withdrawals Ativan when necessary per [facility] Seizure precautions due to history of withdrawal seizures Status: Acute (2) Gouty arthritis of toe of right foot Narrative/Plan: Patient counseled regarding abstinence from alcohol Trial of colchicine 1.2 mg and then 0.6 mg after 1 hour Status: Acute (3) Suicidal ideation Narrative/Plan: suicide precautions in the psych unit Patient currently denies any suicidal ideation Management per psych Status: Acute (4) Hallux valgus with bunions of right foot Narrative/Plan: Patient will benefit from podiatry evaluation as now patient for possible surgical intervention with bunionectomy Status: Chronic Plan: Tobacco smoking abuse Patient counseled to quit smoking, nicotine replacement therapy offered DVT prophylaxis patient is low risk and ambulatory Gastritis , continue with Maalox, Pepcid daily Diet regular as tolerated Thank you for allowing me the opportunity to participate in the care of this patient please don't hesitate to call with any questions
[2016-09-27] MEDS ORDERED: COLCHICINE 0.6 MG TAB PO ONE (20:00)
[2016-09-27] MEDS: LORazepam 1 MG TAB PO SCH (21:07)
[2016-09-28] MEDS: LORazepam 1 MG TAB PO PRN ×2 (05:34→11:12)
[2016-09-28] MEDS: NICOTINE 14MG/24HR PATCH TRANSDERM SCH (08:38)
[2016-09-28] MEDS: LORazepam 1 MG TAB PO SCH (08:40)
[2016-09-28] MEDS ORDERED: IBUPROFEN 800 MG TAB PO PRN (10:56)
[2016-09-28] MEDS: FOLIC ACID 1 MG TAB PO SCH (11:11)
[2016-09-28] MEDS: MULTIVITAMINS, THERA 1 EACH TAB PO SCH (11:11)
[2016-09-28] MEDS: THIAMINE 100 MG TAB PO SCH (11:12)
[2016-09-28 11:16] VITALS: RESP 18
--- NOTE | 2016-09-28 12:21 | P.PN ---
Subjective Principal diagnosis: Patient seen and examined today in follow-up for acute gouty arthritis and acute moderate alcohol intoxication and alcohol withdrawal risk Patient reported some epigastric discomfort yesterday after taking the colchicine however denies any nausea or vomiting currently reports no abdominal pain and he tolerated his breakfast denies any diarrhea however he is reporting constipation for a couple days now. He reports the pain has improved slightly in his right big toe but did not completely go away, the redness has improved over the base of right big toe but otherwise it would still hurts if he walks or stands for long time He continues to deny any suicidal ideation at this point and he feels that his mood is improving He also voiced concerns regarding possible residual stitches from the self- inflicted wounds in his right forearm, as he has herself removed the stitches without seeking professional help. But again denies any pain in his right forearm, any swelling, any discharge, denies any fevers or chills. Objective - Vital Signs Vital signs: Vital Signs Temp 97.4 F L 09/27/16 17:21 Pulse 104 H 09/28/16 11:15 Resp 18 09/28/16 11:15 BP 153/90 09/28/16 11:15 Pulse Ox 98 09/27/16 17:21 Intake & Output 09/27/16 09/28/16 09/28/16 18:59 06:59 18:59 Weight 78.3 kg Constitutional: Not in acute distress, pleasant, conversant Extremities: Right forearm exam shows well-healed wound scars with some residual stitches embedded in the wound, no evidence of subcutaneous fluctuance mass, no tenderness to palpation, no induration, no erythema, no discharge. Right big toe exam shows bony prominence at the base of right big toe no tenderness to palpation no warmth to the touch no swelling very slight erythema but improving compared to yesterday Psych: Alert, oriented to place, person and time - Labs CBC & Chem 7: 09/26/16 14:00 09/26/16 14:00 Assessment and Plan (1) Acute alcohol intoxication Narrative/Plan: Acute moderate severity alcohol intoxication upon presentation, now resolved patient at risk of alcohol withdrawal with history of reported withdrawal seizures Alcohol withdrawal precautions Fall adn seizure precautions Thiamine, folic acid, multivitamins CIWA scale per RN is low Ativan when necessary per CIWA Status: Acute (2) Gouty arthritis of toe of right foot Narrative/Plan: Patient counseled regarding abstinence from alcohol Patient received loading dose of colchicine however he did not tolerate well due to upset stomach Continue with Motrin 800 mg 3 times a day when necessary for pain Status: Acute (3) Suicidal ideation Narrative/Plan: Patient denies any ongoing suicidal ideation, management per psych Status: Acute (4) Hallux valgus with bunions of right foot Narrative/Plan: Patient will benefit from podiatry evaluation as OP patient for possible surgical intervention with bunionectomy Status: Chronic Plan: One isolated reading of elevated systolic blood pressure continue to monitor no history of hypertension consider dietary modification if high BP readings persists Tobacco smoking abuse Patient counseled to quit smoking, nicotine replacement therapy offered DVT prophylaxis patient is low risk and ambulatory Gastritis , continue with Maalox, Pepcid daily Diet regular as tolerated, consider low salt diet , if high blood pressure readings persists
[2016-09-28] MEDS: DOCUSATE 100 MG CAP PO SCH (12:31)
--- NOTE | 2016-09-28 12:37 | P.PN ---
Progress Note - Text Interval History: Patient is a 46-year-old male who is being seen today after admission yesterday for suicidal ideation while intoxicated with alcohol. Patient states that he has been feeling still slightly shaky but has been able to eat and reports no current suicidal thoughts. He states that he is anxious about what the future holds for him. He states that he has contacted [facility] as well as agreeable to return to the crisis residential unit in [place]. Patient reports that he is not feeling depressed and his mood is stable and feels that the intake that he was started on in [place] has been helpful. Patient reported no other concerns at this time. Mental Status: Appearance/Attitude: Patient is neatly groomed, made good eye contact and was cooperative. Behavior: Patient did not display any psychomotor agitation or retardation, was able to sit calmly. Speech/Language: Patient's speech was spontaneous and of normal volume and rhythm and he was coherent. Thought Process: Patient was goal-directed and he was not circumstantial or tangential and no evidence of loose associations or flight of ideas. Thought Content: Any auditory or visual hallucinations and no paranoid or delusional ideation was elicited. Patient reports that he is still feeling somewhat shaky, but did sleep well last evening reports his appetite is fair. He states that he is feeling stable and is interested in a rehab program again. Suicidal/Homicidal Ideation: He current suicidal or homicidal ideation Sensorium/Cognition: Patient is alert and oriented to person, place, and time and his memory is grossly intact. Mood/Affect: Patient's mood is stable and his affect is appropriate. Insight/Judgement: Patient's insight and judgment are fair. Assessment: Patient has received only 1 when necessary dose of Ativan and and Ativan 1 mg on a standing basis, his pulse was slightly elevated and his blood pressure was 153/90 this morning. Patient is no longer reporting any suicidal ideation and states that his mood is stable and he is not feeling depressed. Patient reports that he is willing to return to an alcohol rehab program and states he has contacted [facility]. Patient also reports that he would be willing to return to the crisis residential unit in [place] to await his intake at [facility]. Records received from [facility] that document the patient received Invega Sustenna 234 mg on 09/08/2016 Plan: Patient will receive the second initializing dose of Invega Sustenna 156mg IM today as it is less than 4 weeks since his first initializing dose. Patient's standing dose of Ativan will be discontinued. He will be continued on Ativan 1 mg by mouth as needed to treat any alcohol withdrawal symptoms. Patient was willing to return to an alcohol rehab program, he has an intake at [facility] in [facility] on October 02 and an intake at [facility] on 10/11. Will plan on discharge tomorrow and he will return to [place].
[2016-09-28] MEDS ORDERED: PALIPERIDONE IM 234 MG/1.5 ML SYG IM STA (12:40)
[2016-09-28] MEDS ORDERED: PALIPERIDONE IM 156 MG/ML SYG IM STA (12:47)
--- NOTE | 2016-09-28 17:41 | P.GSCN ---
History of Present Illness Consult date: 09/28/16 Reason for Consult: Suture removal History of present illness: Patient hospitalized on a psychiatric berman. The patient had sutures placed in the right forearm approximately 3-4 weeks ago through the emergency department. The patient had a laceration that was self-inflicted. Interrupted nylon sutures were placed. The patient took some of these out on his own at home but is having hard time removing the remainder of them. We were consulted for suture removal. Past Medical History Past Medical History: GERD/Reflux Additional Past Medical History / Comment(s): Gout, Gastritis. History of Any Multi-Drug Resistant Organisms: None Reported Past Surgical History: Tonsillectomy Additional Past Surgical History / Comment(s): self inflicted wounds and cuts in both forearms status post suturing Past Anesthesia/Blood Transfusion Reactions: No Reported Reaction Past Psychological History: Bipolar, Depression Additional Psychological History / Comment(s): Multiple suicidal attempts in the past Smoking Status: Current every day smoker Past Alcohol Use History: Abuse Additional Past Alcohol Use History / Comment(s): On regular basis he drinks a pint of liquor and a lot of 24 ounces beers Additional Drug Use History / Comment(s): Admits to drug of abuse in the past but nothing current - Past Family History Mother History Unknown: Yes Family Medical History: Unable to Obtain Additional Family Medical History / Comment(s): Patient is adopted and does not know any history on his parents or family members. Father History Unknown: Yes Family Medical History: Unable to Obtain Additional Family Medical History / Comment(s): Patient was adopted when he was 4 years old and was picked up from an orphanage Medications and Allergies Home Medications Medication Instructions Recorded Confirmed Type Multivitamins, Thera [Multivitamin 1 tab PO DAILY 09/26/16 09/26/16 History (formulary)] Allergies Allergy/AdvReac Type Severity Reaction Status Date / Time Sulfa (Sulfonamide Allergy Swelling Verified 09/27/16 16:51 Antibiotics) Surgical - Exam Vital Signs Temp Pulse Resp BP Pulse Ox 99.4 F 118 H 20 121/68 98 09/26/16 13:15 09/26/16 13:15 09/26/16 13:15 09/26/16 13:15 09/26/16 13:15 Physical exam: General: Well-developed, well-nourished HEENT: Normocephalic, sclerae nonicteric Abdomen: Nontender, nondistended Extremities: Scar right forearm 2, 3 visible sutures, most distal aspect laceration with slight induration and small wound dehiscence Neuro: Alert and oriented Results - Labs 09/26/16 14:00 09/26/16 14:00 Assessment and Plan (1) Suture material present Narrative/Plan: The patient's right arm was carefully inspected at the bedside. A total of 4 nylon sutures removed. At the site of the small dehiscence there was a deeper stitch present that was able to be excised. No additional palpable sutures are identified. Status: Acute
[2016-09-29 07:03] VITALS: BP 127/74; PULSE 92; TEMP 98.3
[2016-09-29] MEDS: DOCUSATE 100 MG CAP PO SCH (08:45)
[2016-09-29] MEDS: NICOTINE 14MG/24HR PATCH TRANSDERM SCH (08:46)
--- NOTE | 2016-09-29 09:22 | P.DS ---
Providers Date of admission: 09/27/16 14:06 Expected date of discharge: 09/29/16 Attending physician: Monalisa Loredo MD Consults: 09/27/16 14:14 Consult Physician Routine Consulting Provider: Tiffany Nazario Consult Reason/Comments: Follow UP H & P Do you want consulting provider notified?: Yes 09/28/16 10:23 Consult Physician Routine Consulting Provider: Ed Luna Consult Reason/Comments: removal of old sutures-right wrist Do you want consulting provider notified?: Yes Primary care physician: Stated None Hospital Course: Discharge Diagnoses: Alcohol-induced bipolar and related disorder, with alcohol use disorder severe Reason for Admission: Patient is a 46-year-old male who presented to the emergency room reporting he was feeling suicidal, had been drinking alcohol was unable to guarantee his safety. Patient was seen here on September 04 and was intoxicated with alcohol and had made lacerations on both forearms with a razor requiring sutures. Patient was transferred to [facility] he was admitted there and discharged on September 09. Patient received an initial Invega Sustenna injection there on September 08. Patient did not follow-up with his discharge to a crisis residential unit in [place], never followed up at [facility] for his next injection and began drinking and took a train to [place] from [place]. He reports he had been drinking a pint of liquor and a 12 pack of beer on most days since his discharge. Hospital Course: Patient was admitted to the hospital placed on suicide precautions, placed on Ativan 1 mg twice a day and when necessary for alcohol detox/withdrawal, patient was also ordered group and activity therapy. Patient was seen by the regional medical director who treated the patient with 1 treatment for possible gout, patient was also seen in a surgical consultation to remove sutures from his right wrist from his prior laceration repair. Patient's initial injection dose and date of Invega was documented and patient was given the second initiation dose of 156 mg on September 28. Patient required only 1 as needed Ativan for withdrawal and his scheduled Ativan was discontinued as patient had no complaints and his vital signs were stable. Patient was interested in rehab for alcohol use and contacted [facility] as well as wanting to return to the [place] area. Patient reported no further suicidal ideation. His mood remains stable and the patient was cooperative and participating in groups and activities. Discharge Mental Status:Appearance/Attitude: Patient was neatly dressed and groomed and made good eye contact and was cooperative during the interview. Behavior: Patient exhibited no psychomotor agitation or retardation. Speech/Language: He was spontaneous and spoken a normal volume and rhythm and was coherent. Thought Process: Patient was goal-directed and there is no evidence of any circumstantial or tangential thought and no loose associations or flight of ideas. Thought Content: Patient denied any auditory or visual hallucinations and no delusions or paranoid ideation were elicited. Patient reported that he was not having any racing thoughts, was not feeling depressed and felt that he was ready for discharge. Patient expressed his wish to return to rehab to maintain his sobriety. Suicidal/Homicidal Ideation: Patient denied any current suicidal or homicidal ideation. Sensorium/Cognition: Patient was alert and oriented to person, place, and time and his memory was grossly intact. Mood/Affect: Patient's mood was euthymic, no lability and his affect was appropriate. Insight/Judgement: Patient's insight and judgment are fair. Allergies Sulfa (Sulfonamide Antibiotics) Allergy (Verified 09/27/16 16:51) Swelling Laboratory Last Values WBC 7.6 k/uL (3.8-10.6) 09/26/16 14:00 RBC 4.53 m/uL (4.30-5.90) 09/26/16 14:00 Hgb 14.1 gm/dL (13.0-17.5) 09/26/16 14:00 Hct 40.7 % (39.0-53.0) 09/26/16 14:00 MCV 89.8 fL (80.0-100.0) 09/26/16 14:00 MCH 31.0 pg (25.0-35.0) 09/26/16 14:00 MCHC 34.6 g/dL (31.0-37.0) 09/26/16 14:00 RDW 13.4 % (11.5-15.5) 09/26/16 14:00 Plt Count 283 k/uL (150-450) 09/26/16 14:00 Neutrophils % 62 % 09/26/16 14:00 Lymphocytes % 27 % 09/26/16 14:00 Monocytes % 4 % 09/26/16 14:00 Eosinophils % 2 % 09/26/16 14:00 Basophils % 1 % 09/26/16 14:00 Neutrophils # 4.7 k/uL (1.3-7.7) 09/26/16 14:00 Lymphocytes # 2.1 k/uL (1.0-4.8) 09/26/16 14:00 Monocytes # 0.3 k/uL (0-1.0) 09/26/16 14:00 Eosinophils # 0.1 k/uL (0-0.7) 09/26/16 14:00 Basophils # 0.1 k/uL (0-0.2) 09/26/16 14:00 Sodium 138 mmol/L (137-145) 09/26/16 14:00 Potassium 4.2 mmol/L (3.5-5.1) 09/26/16 14:00 Chloride 107 mmol/L (98-107) 09/26/16 14:00 Carbon Dioxide 18 mmol/L (22-30) L 09/26/16 14:00 Anion Gap 13 mmol/L 09/26/16 14:00 BUN 10 mg/dL (9-20) 09/26/16 14:00 Creatinine 0.69 mg/dL (0.66-1.25) 09/26/16 14:00 Est GFR (MDRD) Af Amer >60 (>60 ml/min/1.73 sqM) 09/26/16 14:00 Est GFR (MDRD) Non-Af >60 (>60 ml/min/1.73 sqM) 09/26/16 14:00 Glucose 75 mg/dL (74-99) 09/26/16 14:00 Calcium 8.5 mg/dL (8.4-10.2) 09/26/16 14:00 Total Bilirubin 0.5 mg/dL (0.2-1.3) 09/26/16 14:00 AST 31 U/L (17-59) 09/26/16 14:00 ALT 26 U/L (21-72) 09/26/16 14:00 Alkaline Phosphatase 134 U/L (38-126) H 09/26/16 14:00 Total Protein 7.6 g/dL (6.3-8.2) 09/26/16 14:00 Albumin 4.3 g/dL (3.5-5.0) 09/26/16 14:00 TSH 2.650 mIU/L (0.465-4.680) 09/27/16 15:55 Urine Opiates Screen Not Detected (NotDetected) 09/26/16 17:00 Ur Oxycodone Screen Not Detected (NotDetected) 09/26/16 17:00 Urine Methadone Screen Not Detected (NotDetected) 09/26/16 17:00 Ur Propoxyphene Screen Not Detected (NotDetected) 09/26/16 17:00 Ur Barbiturates Screen Not Detected (NotDetected) 09/26/16 17:00 U Tricyclic Antidepress Not Detected (NotDetected) 09/26/16 17:00 Ur Phencyclidine Scrn Not Detected (NotDetected) 09/26/16 17:00 Ur Amphetamines Screen Not Detected (NotDetected) 09/26/16 17:00 U Methamphetamines Scrn Not Detected (NotDetected) 09/26/16 17:00 U Benzodiazepines Scrn Not Detected (NotDetected) 09/26/16 17:00 Urine Cocaine Screen Not Detected (NotDetected) 09/26/16 17:00 U Marijuana (THC) Screen Not Detected (NotDetected) 09/26/16 17:00 Serum Alcohol <10 mg/dL 09/27/16 15:55 Current Medications Acetaminophen (Tylenol Tab) 650 mg PO Q4HR PRN PRN Reason: Pain/Discomfort Last Admin: 09/27/16 21:06 Dose: 650 mg Al Hydroxide/Mg Hydroxide (Maalox) 30 ml PO Q4HR PRN PRN Reason: GI Upset Docusate Sodium (Colace) 100 mg PO DAILY [facility] Last Admin: 09/29/16 08:45 Dose: 100 mg Folic Acid (Folic Acid) 1 mg PO DAILY@1200 [facility] Last Admin: 09/28/16 11:11 Dose: 1 mg Ibuprofen (Motrin) 800 mg PO TID PRN PRN Reason: Pain Lorazepam (Ativan) 1 mg PO Q2HR PRN PRN Reason: Alcohol Withdrawal Last Admin: 09/28/16 11:12 Dose: 1 mg Magnesium Hydroxide (Milk Of Magnesia) 2,400 mg PO DAILY PRN PRN Reason: Constipation Multivitamins (Theragran) 1 each PO DAILY@1200 [facility] Last Admin: 09/28/16 11:11 Dose: 1 each Nicotine (Habitrol 14mg/24hr Patch) 1 patch TRANSDERM DAILY [facility] Last Admin: 09/29/16 08:46 Dose: Not Given Thiamine HCl (Vitamin B-1) 100 mg PO DAILY@1200 [facility] Last Admin: 09/28/16 11:12 Dose: 100 mg Ziprasidone (Geodon) 20 mg IM BID PRN PRN Reason: Agitation or Acute Psychosis Risk Assessment: Patient's risk for self-harm remains moderate should patient not maintaining his sobriety and not be compliant with follow-up and medication. Discharge Plan: Patient will be discharged and transported to [place] where he will be staying at a nursing home. Patient has an appointment on October [address] [facility] in [place] and has an intake appointment on October 11 with [facility] for alcohol rehab. Patient will be given prescriptions for multivitamins one a day, thiamine 100 mg a day and full of gas at 1 mg a day. Patient's maintenance Invega Sustenna injection is due on October 13, dose to be determined by [facility]. Patient was encouraged to remain compliant with his appointments and medication as well as to avoid any drugs or alcohol. Patient was encouraged to attend AA meetings and remain sober prior to his intake on October 11 at [facility]. Patient Condition at Discharge: Stable Plan - Discharge Summary New Discharge Prescriptions: New Folic Acid 1 mg PO DAILY@1200 #14 tab Thiamine [Vitamin B-1] 100 mg PO DAILY@1200 #14 tab Continue Multivitamins, Thera [Multivitamin (formulary)] 1 tab PO DAILY #14 Discharge Medication List Folic Acid 1 mg PO DAILY@1200 #14 tab 09/29/16 [Rx] Multivitamins, Thera [Multivitamin (formulary)] 1 tab PO DAILY #14 09/29/16 [Rx ] Thiamine [Vitamin B-1] 100 mg PO DAILY@1200 #14 tab 09/29/16 [Rx] Follow up Appointment(s)/Referral(s): Intake, Intake [Other] - 10/02/16 12:45 pm Intake, Intake [Other] - 10/11/16 None,Stated [Primary Care Provider] - 1-2 days Patient Instructions/Handouts: Depression (GEN), Abuse of Alcohol (DC), Suicide Prevention for Adults (GEN) Activity/Diet/Wound Care/Special Instructions: Activity and diet as tolerated. Avoid the use of street drugs and alcohol. Take all medications as prescribed. When you are in need of refills on your medications please contact your medical provider and/or outpatient psychiatrist to have this done. Please go to scheduled outpatient appointment for aftercare services. If symptoms return or become worse call the crisis line at or [phone] and/or go to the nearest emergency room for an evaluation. Invega Sustenna maintenance injection due on October 13 dose to be determined by [facility] Discharge Disposition: HOME SELF-CARE
[2016-09-29] MEDS: MULTIVITAMINS, THERA 1 EACH TAB PO SCH (12:10)
[2016-09-29] MEDS: FOLIC ACID 1 MG TAB PO SCH (12:10)
[2016-09-29] MEDS: THIAMINE 100 MG TAB PO SCH (12:15)
[2016-10-13] MEDS ORDERED: PALIPERIDONE IM 156 MG/ML SYG IM SCH (09:00)
== END 2016-09-29 13:48 | disposition home or self-care (01) | DRG 897 ==
LOC: EC 13:14 → 3MHU 09-27 14:06
PROVIDERS: ADMIT Psychiatry & Neurology Psychiatry; ATTEND Psychiatry & Neurology Psychiatry
PROC: 8E0XXY8 Suture Removal from Upper Extremity (ICD-10-PCS; principal; 2016-09-28)
DX: F10.14 Alcohol abuse with alcohol-induced mood disorder (principal); T81.30XA Disruption of wound, unspecified, initial encounter; R45.851 Suicidal ideations; M10.079 Idiopathic gout, unspecified ankle and foot; M20.10 Hallux valgus (acquired), unspecified foot; Y90.7 Blood alcohol level of 200-239 mg/100 ml; K59.00 Constipation, unspecified; F17.200 Nicotine dependence, unspecified, uncomplicated; F10.129 Alcohol abuse with intoxication, unspecified; K21.9 Gastro-esophageal reflux disease without esophagitis; S51.811A Laceration without foreign body of right forearm, initial encounter; S51.812A Laceration without foreign body of left forearm, initial encounter; Z88.2 Allergy status to sulfonamides; Z91.19 Patient's noncompliance with other medical treatment and regimen; Z59.0 Homelessness; Z91.5 Personal history of self-harm; Z71.41 Alcohol abuse counseling and surveillance of alcoholic; Z71.6 Tobacco abuse counseling; K29.70 Gastritis, unspecified, without bleeding
CPT/HCPCS: 36415; 80053; 80306; 80320; 82075; 84443; 85025; 96361; 96374; 96376

== ENCOUNTER 2018-01-21 23:41 | Emergency (ER) | payer OTHER ==
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
[2018-01-22 05:32] LABS: Amphetamine Screen,Urine Not Detected (NotDetected); Barbiturate Screen,Urine Not Detected (NotDetected); Benzodiazepines Screen,Urine Not Detected (NotDetected); Cocaine Screen,Urine Not Detected (NotDetected); Methadone Screen, Urine Not Detected (NotDetected); Opiate Screen,Urine Not Detected (NotDetected); Oxycodone Screen, Urine Not Detected (NotDetected); Phencyclidine Screen,Urine Not Detected (NotDetected); Tricyclic Antidepressant,Urine Not Detected (NotDetected); Urn Cannabinoid Scrn Not Detected (NotDetected)
[2018-01-22 10:02] VITALS: BP 123/83; PULSE 116; RESP 18; TEMP 98.7
== END 2018-01-22 09:47 | disposition home or self-care (01) ==
LOC: EC 23:41
DX: R45.851 Suicidal ideations (principal); F10.129 Alcohol abuse with intoxication, unspecified; F17.200 Nicotine dependence, unspecified, uncomplicated; Z88.2 Allergy status to sulfonamides
CPT/HCPCS: 80306; 82075; 99284